=== PATIENT | female | born 1990 | race Caucasian/White ===

== ENCOUNTER → 2019-09-13 | Outpatient (REF) | payer OTHER ==
[~2019-09-13] MED LIST: IBUP80TA PO; MAGN400C2 PO; OMEP1CAP73 PO; PRENTAB53 PO
[2019-11-11 11:33] LABS: BASO # 0.1 10^3/uL (0.0-0.2); BASO % 0.5 % (0.0-1.0); EOS # 0.1 10^3/uL (0.0-0.5); EOS % 1.3 % (0.0-3.0); HEMATOCRIT 30.3 % (36.0-47.0); HEMOGLOBIN 9.3 g/dl (12.0-15.5); LYMPH # 1.3 10^3/uL (1.5-5.0); LYMPH % 14.1 % (24.0-44.0); MEAN CORPUSCULAR HEMOGLOBIN 21.4 pg (27.0-33.0); MEAN CORPUSCULAR HGB CONC 30.7 g/dl (32.0-36.5); MEAN CORPUSCULAR VOLUME 69.8 fl (80.0-96.0); MONO # 0.4 10^3/uL (0.0-0.8); MONO % 4.3 % (0.0-5.0); NEUTROPHILS # 7.5 10^3/uL (1.5-8.5); NEUTROPHILS % 79.3 % (36.0-66.0); PLATELET COUNT, AUTOMATED 408 10^3/uL (150-450); RED BLOOD COUNT 4.34 10^6/uL (4.00-5.40); WHITE BLOOD COUNT 9.5 10^3/uL (4.0-10.0)
== END ==
LOC: M LABSMT 15:05
PROVIDERS: ATTEND Advanced Practice Midwife
DX: Z34.80 Encounter for supervision of other normal pregnancy, unspecified trimester (principal); Z3A.00 Weeks of gestation of pregnancy not specified

== ENCOUNTER → 2019-09-19 | Outpatient (CLI) | payer OTHER | LOC: M WHC 17:55 | PROVIDERS: ATTEND Advanced Practice Midwife | DX: Z34.80 Encounter for supervision of other normal pregnancy, unspecified trimester (principal); Z3A.00 Weeks of gestation of pregnancy not specified ==

== ENCOUNTER → 2019-11-09 | Outpatient (REF) | payer OTHER | LOC: M SFHCWAGY 13:13 | PROVIDERS: ATTEND Obstetrics & Gynecology | DX: Z3A.37 37 weeks gestation of pregnancy (principal) ==

== ENCOUNTER → 2019-11-21 | Outpatient (CLI) | payer OTHER | LOC: M LABSMTC 09:29 | PROVIDERS: ATTEND Anesthesiology | DX: Z01.812 Encounter for preprocedural laboratory examination (principal); Z20.828 Contact with and (suspected) exposure to other viral communicable diseases | CPT/HCPCS: C9803; U0003 ==

== ENCOUNTER 2019-11-26 07:30 | Inpatient (IN) | payer OTHER ==
[2019-11-26] VITALS (7 sets, daily range): BP systolic 109–166; BP diastolic 63–96
[~2019-11-26] VITALS: Ht 162.6 cm; Wt 113.0 kg
[~2019-11-26 07:30] MED LIST changes: -IBUP80TA PO
[2019-11-26] MEDS ORDERED: BICITRA 30ML SOLN UDC PO ONE (08:45)
[2019-11-26] MEDS ORDERED: ceFAZolin SOD 2 GM in IV 1 EA IV ONE ×4 (08:45)
[2019-11-26] MEDS ORDERED: LR 1,000 ML IV SCH ×2 (09:00→11:45)
[2019-11-26] MEDS ORDERED: LR 800 ML IV ONE (09:00)
[2019-11-26] MEDS: PRENATAL VITAMINS CHEWABLE TABLET PO SCH (09:00)
[2019-11-26 09:13] LABS: HEMATOCRIT 30.2 % (36.0-47.0); HEMOGLOBIN 9.3 g/dl (12.0-15.5); MEAN CORPUSCULAR HEMOGLOBIN 20.5 pg (27.0-33.0); MEAN CORPUSCULAR HGB CONC 30.8 g/dl (32.0-36.5); MEAN CORPUSCULAR VOLUME 66.7 fl (80.0-96.0); PLATELET COUNT, AUTOMATED 383 10^3/uL (150-450); RED BLOOD COUNT 4.53 10^6/uL (4.00-5.40); WHITE BLOOD COUNT 9.4 10^3/uL (4.0-10.0)
[2019-11-26] MEDS ORDERED: diphenhydrAMINE 50MG/ML VIAL (J1200) IV PRN (10:21)
[2019-11-26] MEDS ORDERED: ONDANSETRON 4MG/2ML VIAL IV PRN ×3 (10:21→11:45)
[2019-11-26] MEDS ORDERED: NALOXONE INJ 0.4MG/1ML VIAL (J2310 PER 1MG) IV PRN ×2 (10:21)
[2019-11-26] MEDS ORDERED: NALBUPHINE HCL 10 MG/ML AMP (J2300) IV PRN (10:21)
[2019-11-26] MEDS ORDERED: OXYTOCIN 30 UNITS IN 0.9% NaCl 500ML IV BAG (J2590) As Ordered ONE ×2 (10:31→11:48)
[2019-11-26] MEDS ORDERED: MORPHINE PRES-FREE INJ 10 MG/10 ML VIAL (J2274) As Ordered ONE (10:31)
[2019-11-26] MEDS ORDERED: KETOROLAC 60MG 2ML VIAL As Ordered ONE (10:31)
[2019-11-26] MEDS ORDERED: PHENYLephrine HCL 500 MCG/5 ML (100MCG/ML) SYRINGE (J2370) As Ordered ONE (10:31)
[2019-11-26] MEDS ORDERED: dexameTHASONE 4 MG/ML 1ML VIAL (J1100 PER 1MG) As Ordered ONE (10:31)
[2019-11-26] MEDS ORDERED: ONDANSETRON 4MG/2ML VIAL As Ordered ONE (10:31)
[2019-11-26] MEDS ORDERED: OXYTOCIN DRIP 30 UNITS in IV 1 EA IV SCH (11:14)
[2019-11-26] MEDS ORDERED: DOCUSATE SODIUM 100 MG CAP PO PRN (11:15)
[2019-11-26] MEDS ORDERED: RHOGAM 300 MCG (1500 IU) INJ (J2790) IM SCH (11:15)
[2019-11-26] MEDS ORDERED: MEASLES,MUMPS,RUBELLA VACCINE INJ (MMR-II) (90707) SC SCH (11:15)
[2019-11-26] MEDS ORDERED: PERCOCET 5MG/325MG TAB PO PRN ×2 (11:15→11:45)
--- NOTE | 2019-11-26 11:34 | ROOPDOC ---
[facility] Report Of Operation Report of Operation DATE OF PROCEDURE: 11/26/2019 Report of operation Preoperative diagnosis: 39 weeks, prior x 2 Postoperative diagnosis: same Procedure: Repeat low transverse section and bilateral tubal ligation. Surgeon: Brunilda Almendarez M.D. Asst.: Brianna Pineda CNM EBL: 500 ml. Urine output: 100 mL's. Findings: 9 lbs. 8 oz. male infant, Apgars 9 and 9 g normal uterus, fallopian tubes, ovaries. Operative summary: Patient states the operative room where spinal anesthesia induced. She is prepped draped sterile fashion in the supine position. A Max catheter was placed. A Pfannenstiel skin incision was made with scalpel. Fascia was incised and extended bilaterally. The peritoneal cavity was entered. A Mobius retractor was placed. A bladder flap was created. A curvilinear incision was made in lower uterine segment until Clear fluid was noted. The incision was extended manually. The infant was delivered from the vertex position without difficulty. Cord was double clamped and cut. The was handed waiting nurses. . The placenta was expressed. Uterus was closed with O-Vicryl in a running locked fashion. A second imbricating layer of Vicryl was placed. Attention was turned to the fallopian tubes. A [place] clamp was used to grasp the fallopian tubes at the midportion.. A window was created in the broad ligament free tie of 2-0 chromic was placed around the segment of tube on either side of the clamp. A Segment of tube was excised bilaterally and sent to pathology. Peritoneum was closed with 2-0 Vicryl a running fashion. Fascia was closed with 0 Vicryl in running fashion. Skin was closed 4-0 Monocryl subcuticular sutures. Sponge, instrument and needle counts were correct. Brianna Pineda CNM, assisted with all aspects of the procedure. She helped each layer of the incision and deliver the fetus. BRUNILDA ALMENDAREZ MD Nov 26, 2019 11:34
[2019-11-26] MEDS ORDERED: fentaNYL 100 MCG/2 ML INJECTION (J3010) IV PRN (11:45)
[2019-11-26] MEDS ORDERED: METOCLOPRAMIDE INJ 10MG/2ML VIAL (J2765 PER 1) IV PRN (11:45)
[2019-11-26] MEDS: METOCLOPRAMIDE INJ 10MG/2ML VIAL (J2765 PER 1) IV PRN ×2 (13:16→21:15)
[2019-11-26] MEDS: LR 1,000 ML IV SCH ×2 (16:05→19:54)
[2019-11-26] MEDS: KETOROLAC 30 MG/ML 1ML VIAL IV SCH ×2 (17:54→22:51)
[2019-11-26] MEDS ORDERED: LR 500 ML IV ONE (18:30)
[2019-11-27 02:10] VITALS: BP 118/59
[2019-11-27] MEDS: KETOROLAC 30 MG/ML 1ML VIAL IV SCH (04:22)
[2019-11-27 05:49] VITALS: BP 117/59
[2019-11-27 07:17] LABS: HEMATOCRIT 24.6 % (36.0-47.0); HEMOGLOBIN 7.7 g/dl (12.0-15.5); MEAN CORPUSCULAR HGB CONC 31.3 g/dl (32.0-36.5); RED BLOOD COUNT 3.67 10^6/uL (4.00-5.40)
[2019-11-27 07:29] LABS: PLATELET COUNT, AUTOMATED 282 10^3/uL (150-450)
[2019-11-27] MEDS: PRENATAL VITAMINS CHEWABLE TABLET PO SCH (07:31)
[2019-11-27 08:56] LABS: HIV 1&2 SCREEN CENTAUR NEGATIVE (NEGATIVE)
[2019-11-27] MEDS ORDERED: IBUP80TA PO (09:03)
[2019-11-27 10:00] VITALS: BP 125/81
[2019-11-27] MEDS: IBUPROFEN 800 MG TAB PO SCH ×2 (12:43→20:40)
[2019-11-27 14:00] VITALS: BP 135/78
[2019-11-27 18:00] VITALS: BP 139/73
[2019-11-27] MEDS: PERCOCET 5MG/325MG TAB PO PRN (18:41)
[2019-11-27 22:00] VITALS: BP 128/79
[2019-11-28 01:53] VITALS: BP 138/89
[2019-11-28] MEDS: IBUPROFEN 800 MG TAB PO SCH (05:24)
--- NOTE | 2019-11-28 05:39 | DS.PDOC ---
Discharge Summary General Date of Admission Nov 26, 2019 at 07:32 Date of Discharge Nov 28, 2019 Discharge Summary PROCEDURES PERFORMED DURING STAY: [None]. ADMITTING DIAGNOSES: 1. 39 weeks, prior , undesired fertility DISCHARGE DIAGNOSES: 1. same. COMPLICATIONS/CHIEF COMPLAINT: Previous Section,Satisfied Fertility. HISTORY OF PRESENT ILLNESS: 29 yo at 39 weeks presents for repeat and BTL HOSPITAL COURSE: On 11/26/19 the patient underwent a repeat cesarea nand BTL. T here were no complications. Her pst op course was unremarkable. She had adequate return of bladder and bowel function. Her hemoglobin was as expected. She was stable for discahrge post op day #2.. DISCHARGE MEDICATIONS: Please see below. ALLERGIES: Please see below. PHYSICAL EXAMINATION ON DISCHARGE: VITAL SIGNS: Please see below. GENERAL: WNL HEENT: WNL CARDIOVASCULAR EXAMINATION: RRR RESPIRATORY EXAMINATION: CTA ABDOMINAL EXAMINATION: NT, soft, dressing CDI EXTREMITIES: NT ACTIVITY: As tolerated. DIET: reg DISCHARGE PLAN: DISPOSITION: fu 2 weeks DISCHARGE INSTRUCTIONS: 1. Discahrge home 2.instructions reviewed 3.pain meds sent in. ITEMS TO FOLLOWUP ON ON OUTPATIENT: 1. . DISCHARGE CONDITION: Stable. Vital Signs/I&Os Vital Signs Date Time Temp Pulse Resp B/P (MAP) Pulse Ox O2 Delivery O2 Flow Rate FiO2 11/28/19 01:53 98.2 69 18 138/89 (105) 97 Room Air Laboratory Data Labs 24H Laboratory Tests 2 11/27/19 06:51: Nucleated Red Blood Cells % (auto) 0.0 CBC/BMP Laboratory Tests 11/27/19 06:51 Discharge Medications Scheduled Ibuprofen (Ibuprofen) 800 Mg Tablet, 800 MG PO Q8H Vit,Calc76/Iron/Folic (Prenatabs Rx Tablet) 1 Each Tablet, 1 TAB PO DAILY, (Reported) Allergies Coded Allergies: No Known Allergies (Unverified , 11/19/19) BRUNILDA ALMENDAREZ MD Nov 28, 2019 05:39
[2019-11-28 06:10] VITALS: BP 138/94
[2019-11-28] MEDS: PERCOCET 5MG/325MG TAB PO PRN (07:57)
[2019-11-28] MEDS: PRENATAL VITAMINS CHEWABLE TABLET PO SCH (07:57)
== END 2019-11-28 11:20 | disposition home or self-care (01) | DRG 785 ==
LOC: M LDI 07:32 → M OBS 12:50
PROVIDERS: ADMIT Specialist; ATTEND Specialist
PROC: 0UB70ZZ Excision of Bilateral Fallopian Tubes, Open Approach (ICD-10-PCS; 2019-11-26)
PROC: 10D00Z1 Extraction of Products of Conception, Low, Open Approach (ICD-10-PCS; principal; 2019-11-26 09:30)
DX: O34.211 Maternal care for low transverse scar from previous cesarean delivery (principal); Z37.0 Single live birth; Z3A.39 39 weeks gestation of pregnancy

== ENCOUNTER → 2019-12-13 | Outpatient (REF) | payer OTHER ==
[~2019-12-13] MED LIST changes: +IBUP80TA PO
== END ==
LOC: M SFHCWAGY 16:47
PROVIDERS: ATTEND Specialist
DX: R30.0 Dysuria (principal)

== ENCOUNTER → 2020-04-28 | Outpatient (CLI) | payer OTHER ==
[2020-04-28 15:19] LABS: ALBUMIN 3.7 GM/DL (3.2-5.2); ALT/SGPT 14 U/L (12-78); BILIRUBIN,TOTAL 0.7 MG/DL (0.2-1.0); BLOOD UREA NITROGEN 13 MG/DL (7-18); CALCIUM LEVEL 8.9 MG/DL (8.5-10.1); CARBON DIOXIDE LEVEL 25 MEQ/L (21-32); CHLORIDE LEVEL 105 MEQ/L (98-107); CHOLESTEROL LEVEL 161 MG/DL (<200); CHOLESTEROL RISK RATIO 2.367 (<5); CREATININE FOR GFR 0.65 MG/DL (0.55-1.30); FREE T4 0.91 NG/DL (0.76-1.46); GLOMERULAR FILTRATION RATE > 60.0 (>60); GLUCOSE, FASTING 74 MG/DL (70-100); HDL CHOLESTEROL 68 MG/DL (>40); LDL CHOLESTEROL 77 MG/DL (<100); NON-HDL-C 93 MG/DL; POTASSIUM SERUM 4.7 MEQ/L (3.5-5.1); SODIUM LEVEL 137 MEQ/L (136-145); THYROGLOBULIN ANTIBODY < 15.0 U/ML (<60.0); THYROID PEROXIDASE ANTIBODY 394.2 U/ML (<60.0); TOTAL PROTEIN 7.2 GM/DL (6.4-8.2); TRIGLYCERIDES LEVEL 79 MG/DL (<150)
== END ==
LOC: M WUC 11:26
PROVIDERS: ATTEND Student in an Organized Health Care Education/Training Program
DX: E06.3 Autoimmune thyroiditis (principal); E66.9 Obesity, unspecified

== ENCOUNTER → 2020-07-18 | Outpatient (REF) | payer OTHER | LOC: M PLALAB 15:03 | PROVIDERS: ATTEND Obstetrics & Gynecology | DX: Z12.4 Encounter for screening for malignant neoplasm of cervix (principal) | CPT/HCPCS: 87624; G0123; G0463 ==

== ENCOUNTER → 2020-09-08 | Outpatient (CLI) | payer OTHER ==
[2020-09-08 14:53] LABS: FREE T4 0.82 NG/DL (0.76-1.46); THYROID STIMULATING HORMONE 0.979 uIU/ML (0.358-3.740)
== END ==
LOC: M PLALAB 11:20
PROVIDERS: ATTEND Nurse Practitioner Family
DX: E06.3 Autoimmune thyroiditis (principal)

== ENCOUNTER → 2020-11-07 | Outpatient (CLI) | payer OTHER ==
[2020-11-07 12:18] LABS: FREE T4 1.15 NG/DL (0.76-1.46); THYROID STIMULATING HORMONE 0.828 uIU/ML (0.358-3.740)
== END ==
LOC: M WUC 09:14
PROVIDERS: ATTEND Nurse Practitioner Family
DX: E06.3 Autoimmune thyroiditis (principal)

== ENCOUNTER → 2021-03-10 | Outpatient (CLI) | payer OTHER | LOC: M WUC 15:31 | PROVIDERS: ATTEND Nurse Practitioner Family | DX: E06.3 Autoimmune thyroiditis (principal) ==

== ENCOUNTER → 2021-09-29 | Outpatient (CLI) | payer OTHER ==
[2021-09-29 15:34] LABS: BASO # 0.1 10^3/uL (0.0-0.2); BASO % 0.7 % (0.0-1.0); EOS # 0.2 10^3/uL (0.0-0.5); EOS % 1.7 % (0.0-3.0); HEMATOCRIT 36.6 % (36.0-47.0); HEMOGLOBIN 11.3 g/dl (12.0-15.5); LYMPH # 1.6 10^3/uL (1.5-5.0); LYMPH % 18.8 % (24.0-44.0); MEAN CORPUSCULAR HEMOGLOBIN 20.1 pg (27.0-33.0); MEAN CORPUSCULAR HGB CONC 30.9 g/dl (32.0-36.5); MONO # 0.4 10^3/uL (0.0-0.8); MONO % 4.7 % (2.0-8.0); NEUTROPHILS # 6.4 10^3/uL (1.5-8.5); NEUTROPHILS % 73.6 % (36.0-66.0); PLATELET COUNT, AUTOMATED 402 10^3/uL (150-450); RED BLOOD COUNT 5.63 10^6/uL (4.00-5.40); WHITE BLOOD COUNT 8.7 10^3/uL (4.0-10.0)
[2021-09-29 16:08] LABS: ALBUMIN 3.9 GM/DL (3.2-5.2); ALT/SGPT 13 U/L (12-78); BILIRUBIN,TOTAL 1.1 MG/DL (0.2-1.0); BLOOD UREA NITROGEN 11 MG/DL (7-18); CALCIUM LEVEL 9.5 MG/DL (8.5-10.1); CARBON DIOXIDE LEVEL 26 MEQ/L (21-32); CHLORIDE LEVEL 105 MEQ/L (98-107); CREATININE FOR GFR 0.75 MG/DL (0.55-1.30); FREE T4 0.82 NG/DL (0.76-1.46); GLOMERULAR FILTRATION RATE > 60.0 (>60); GLUCOSE, FASTING 84 MG/DL (70-100); SODIUM LEVEL 135 MEQ/L (136-145); TOTAL PROTEIN 7.8 GM/DL (6.4-8.2)
== END ==
LOC: M PLALAB 13:15
PROVIDERS: ATTEND Student in an Organized Health Care Education/Training Program
DX: Z00.00 Encounter for general adult medical examination without abnormal findings (principal); D56.9 Thalassemia, unspecified; E06.3 Autoimmune thyroiditis

== ENCOUNTER → 2021-09-29 | Outpatient (CLI) | payer OTHER | LOC: M WHC 10:28 | PROVIDERS: ATTEND Student in an Organized Health Care Education/Training Program | DX: Z00.00 Encounter for general adult medical examination without abnormal findings (principal); N64.4 Mastodynia; R92.8 Other abnormal and inconclusive findings on diagnostic imaging of breast; D56.9 Thalassemia, unspecified; E06.3 Autoimmune thyroiditis | CPT/HCPCS: 36415; 76642; 77066; 80053; 84439; 84443; 85025; G0279 ==

== ENCOUNTER → 2022-01-18 | Outpatient (CLI) | payer OTHER ==
[2022-01-18 13:49] LABS: THYROID STIMULATING HORMONE 1.06 uIU/ML (0.55-4.78)
[2022-01-18 13:50] LABS: FREE T4 1.04 NG/DL (0.89-1.76)
== END ==
LOC: M PLALAB 11:32
PROVIDERS: ATTEND Internal Medicine
DX: E06.3 Autoimmune thyroiditis (principal)